=== PATIENT | male | born 1950 | race Caucasian/White ===

== ENCOUNTER → 2025-03-13 | Outpatient (CLI) | payer MEDICARE ==
[2025-03-13 16:24] VITALS: BP 110/75; PULSE 64; RESP 12; TEMP 97.9
--- NOTE | 2025-03-13 17:37 | P.SLEEP ---
History of Present Illness DATE: 03/13/2025 CONSULTATION/NEW PATIENT EVALUATION HISTORY OF PRESENT ILLNESS/SLEEP-WAKE EVALUATION: 74-year-old gentleman had b een evaluated in the sleep center for possible obstructive sleep apnea hypopnea syndrome. SLEEP SCHEDULE: Usually sleep schedule from 10 PM to 10 AM. FALLING ASLEEP: Sometimes patient has difficulties with falling asleep, although no TV in bedroom. DURING SLEEP: Patient sleeps on the side position and wakes up from sleep 2 times with nocturia. No history of hypnogogical hallucinations, sleep p aralysis, or cataplexy. DURING THE DAY/WAKE STATE: In the morning patient wake up tired, falling asleep during the day. [place] sleepiness scale is 8. Patient may take up to 3 naps during the day. PAST MEDICAL HISTORY: Atrial fibrillation, stroke ischemic in 2023, hyperlipidemia. PAST SURGICAL HISTORY: Bilateral knee replacement. MEDICATIONS: Please see below. SOCIAL HISTORY: Please see below. FAMILY HISTORY: Please see below. REVIEW OF SYSTEMS: Awakenings from sleep, sleepiness during the day. No fevers. No double vision. No recent chest pain. No shortness of breath. No abdominal pain. No bleeding episodes. No blood in urine. No seizure episodes. PHYSICAL EXAMINATION: GENERAL: A pleasant patient without any distress. VITAL SIGNS: Please see below, weight 263.8 pounds, BMI 43.1. HEENT: PERRLA, EOMI. Evaluation of oropharynx showed tongue protrudes midline, low position of soft palate Mallampati 4. NECK: Supple. No JVD. Thyroid is not palpable. 17.5 inches in circumference. LUNGS: Clear to percussion and to auscultation. Good air exchange. No wheezing or rhonchi. HEART: S1, S2 irregular. ABDOMEN: Soft and nontender. Bowel sounds are present. No organomegaly a ppreciated. EXTREMITIES: No clubbing or cyanosis, 1+ bilateral lower leg edema. 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 Cranial nerves 2 to 7 intact. There is no fasciculation or atrophy noted. No focal deficits observed. ASSESSMENT: 1. Awakenings from sleep with nocturia, extremely low position of soft palate Mallampati 4, wide neck 17.5 inches in circumference. Obstructive sleep apnea hypopnea syndrome. 2. Atrial fibrillation. 3. Status post ischemic stroke in December 2023. 4. Hyperlipidemia. 5 status post bilateral knee replacement. 6 . Obesity, BMI 43.1. PLAN: 1. Polysomnography for evaluation of patient's breathing during sleep. 2. Following plan after reading sleep study. 3. Preferable position during sleep on the side. 4. No driving if patient feels any sleepiness. Patient is aware of civil and criminal liability for unsafe driving. 5. Sleep hygiene with regular sleep time for at least 7.5-8 hours. 6. Watching and losing weight. Thank you very much for referring this patient for consultation. Sincerely, Layo Blackwood MD, PhD, FAASM. Diplomat of [employer], Sleep Medicine Board by [place] [employer] Faculty Member of [facility] [place] cc: Valeriy Mcarthur MD, Tavo Villafana DO Past Medical History Past Medical History: Atrial Fibrillation, CVA/TIA, Hyperlipidemia, Hypertension Additional Past Medical History / Comment(s): SPINAL STENOSIS History of Any Multi-Drug Resistant Organisms: None Reported Past Surgical History: Joint Replacement, Orthopedic Surgery Additional Past Surgical History / Comment(s): CARPAL TUNNEL Past Anesthesia/Blood Transfusion Reactions: No Reported Reaction Past Psychological History: No Psychological Hx Reported Smoking Status: Former smoker Past Alcohol Use History: None Reported Past Drug Use History: None Reported Medications and Allergies Home Medications Medication Instructions Recorded Confirmed Type Apixaban [Eliquis] 5 mg PO DAILY 03/13/25 03/13/25 History Ezetimibe [Zetia] 10 mg PO DAILY 03/13/25 03/13/25 History Metoprolol Succinate (ER) [Toprol 25 mg PO DAILY 03/13/25 03/13/25 History XL] Potassium Chloride 10 meq PO DAILY 03/13/25 03/13/25 History hydroCHLOROthiazide [Hydrodiuril] 50 mg PO DAILY 03/13/25 03/13/25 History Physical Exam Vitals: Vital Signs Temp Pulse Resp BP Pulse Ox 03/13/25 16:23 97.9 F 64 12 110/75 94 L Intake and Output 03/13/25 03/13/25 03/13/25 06:59 14:59 22:59 Other: Weight 119.295 kg Sleep Note - Sleep Data ESS Total: 8 - Sleep Note Sleep Note: Temperature: 97.9 F Pulse Rate: 64 Respiratory Rate: 12 Blood Pressure: 110/75 SpO2: 94 Height: 5 ft 5.5 in Weight: 119.295 kg BMI: Neck Circumference: 17.5
== END ==
LOC: 3 N SLEEP 15:08
PROVIDERS: ATTEND Internal Medicine
DX: G47.33 Obstructive sleep apnea (adult) (pediatric) (principal); I48.91 Unspecified atrial fibrillation; E78.5 Hyperlipidemia, unspecified; E66.9 Obesity, unspecified; Z68.41 Body mass index [BMI] 40.0-44.9, adult; Z96.653 Presence of artificial knee joint, bilateral; Z86.73 Personal history of transient ischemic attack (TIA), and cerebral infarction without residual deficits
CPT/HCPCS: 99211

== ENCOUNTER 2025-04-23 07:08 | Day surgery (SDC) | payer MEDICARE ==
[2025-04-22 14:23] VITALS: BMI 43.6
[2025-04-23] MEDS: LACTATED RINGERS 1,000 ML IV SCH (07:56)
[2025-04-23] MEDS: IV FLUID CONTINUATION 1,000 ML IV ONE ×2 (07:57→08:50)
[2025-04-23 07:58] VITALS: TEMP 97
[2025-04-23] MEDS ORDERED: PROPOFOL 10 MG/ML 20 ML VIAL IV ONE (08:52)
--- NOTE | 2025-04-23 09:11 | P.PCN ---
Date of Procedure: 04/23/25 Procedure(s) Performed: BRIEF HISTORY: Patient is a 74-year-old pleasant white male scheduled for an elective colonoscopy as a part of screening for prior history of colon polyps. Last colonoscopy was 3-1/2 years ago and was noted to have tubular adenoma. PROCEDURE PERFORMED: Colonoscopy with snare polypectomy. PREOPERATIVE DIAGNOSIS: Screening for history of colon polyps. IV sedation per Anesthesia. PROCEDURE: After informed consent was obtained, the patient, was brought into the endoscopy unit. IV sedation was administered by Anesthesia under continuous monitoring. Digital rectal examination was normal. Initially the Olympus CF-160 flexible video colonoscope was then inserted in the rectum, gradually advanced into the cecum without any difficulty. Careful examination was performed as the scope was gradually being withdrawn. Ileocecal valve and the appendiceal orifice were visualized and appeared normal. Prep was excellent. Mucosa of the cecum had 3 polyps measuring between 4 mm to 7 mm in size all tissue removed by cold snare polypectomy. In the hepatic flexure there was a 1 cm flat polyp that was removed by cold snare polypectomy. In the descending colon there was a 5 mm polyp removed by cold snare polypectomy. Rest of the ascending colon, transverse colon, descending colon, sigmoid colon, and rectum appeared normal. Retroflexion was performed in the rectum and no lesions were seen. The patient tolerated the procedure well. IMPRESSION: 4 mm x 2 and 7 mm cecal polyp status post cold snare polypectomy. 1 cm flat hepatic rectal polyp status post cold snare polypectomy 5 mm descending colon polyp status post cold snare polypectomy RECOMMENDATIONS: Findings of this examination were discussed with the patient as well as his family. He was advised to follow the biopsy results. If the biopsy reveals adenoma he can have repeat colonoscopy in 3 years.
[2025-04-23 09:50] VITALS: BP 145/91; PULSE 87; RESP 14
== END 2025-04-23 10:00 | disposition home or self-care (01) ==
LOC: ORWHC2ENDO 07:08
PROVIDERS: ATTEND Internal Medicine Gastroenterology
DX: Z12.11 Encounter for screening for malignant neoplasm of colon (principal); D12.0 Benign neoplasm of cecum; D12.2 Benign neoplasm of ascending colon; D12.3 Benign neoplasm of transverse colon; D12.4 Benign neoplasm of descending colon; Z86.0100 Personal history of colon polyps, unspecified; I10 Essential (primary) hypertension; E78.5 Hyperlipidemia, unspecified; I48.91 Unspecified atrial fibrillation; I25.10 Atherosclerotic heart disease of native coronary artery without angina pectoris; G47.33 Obstructive sleep apnea (adult) (pediatric); Z86.73 Personal history of transient ischemic attack (TIA), and cerebral infarction without residual deficits; Z79.899 Other long term (current) drug therapy; Z79.01 Long term (current) use of anticoagulants; Z98.890 Other specified postprocedural states
CPT/HCPCS: 88305; 45385; J2704

== ENCOUNTER 2025-05-07 19:39 | Outpatient (CLI) | payer MEDICARE ==
--- NOTE | 2025-05-08 11:09 | P.PCN ---
Description of Procedure: POLYSOMNOGRAPHY REPORT PROCEDURE(S)/DATE(S): Polysomnography 05/07/2025 CLINICAL: Patient has been seen in the sleep center for evaluation of obstructive sleep apnea-hypopnea syndrome. Please see my consultation. Sleep study has been done for evaluation of patient breathing during the sleep. PROCEDURE: The standard montage for clinical polysomnography included the electroencephalogram, the electrooculogram, the mentalis surface electromyography and Lead II cardiography. The respiratory battery consisted of measurements of nasal/buccal air flow, pressure transducer measurements from nose, thoracic and/or abdominal effort and intercostal surface electromyography. Video monitoring has been done to check for any parasomnia events. Nocturnal oxyhemoglobin saturations were obtained by finger oximetry. Step-haynes titration with positive airway pressure was utilized to control the respiratory events, if necessary. RESULTS: During the diagnostic sleep study sleep efficiency was significantly decreased to 77.7%. Latency to sleep onset was normal at 20.0 min. Sleep architecture showed stage NI was extremely high 50.7%, Delta sleep was absent 0%, REM sleep was absent 0%. Respiratory channel showed 78 obstructive apneas, 1 mixed apneas, 1 central apneas, 290 hypopneas with lowest oxygen level 81%. Total apnea hypopnea index was 72.3. Heart rate was in the range between 62 and 75, average 69. EMG showed 1.0 periodic limb movements per hour with 0 micro-arousals per hour. IMPRESSIONS: 1. Extremely severe obstructive sleep apnea hypopnea syndrome. 2. No significant periodic limb movements have been documented. Please see other impressions from consultation PLAN: 1. The patient will have PAP titration for correction of respiratory abnormalities during the sleep. 2. Losing weight program. 3. Sleep hygiene with regular time in bed for at least 7-1/2 hours. 4. No driving if feeling sleepiness. Thank you very much for allowing me to participate in the management of your patient. Sincerely, Layo Blackwood MD, PhD, FAASM. Diplomat of [place] [employer], Sleep Medicine Board by [employer] Combining Machine Operator of [facility] [place] cc: Valeriy Mcarthur MD
== END 2025-05-08 06:30 | disposition home or self-care (01) ==
LOC: 3 N SLEEP 19:39
PROVIDERS: ATTEND Internal Medicine
DX: G47.33 Obstructive sleep apnea (adult) (pediatric) (principal)
CPT/HCPCS: 95810